=== PATIENT | male | born 1985 | race Caucasian/White ===

== ENCOUNTER 2018-07-10 05:32 | Day surgery (SDC) | payer BC ==
[2018-07-10] MEDS: BUPIVACAINE 0.25% (MPF) 30 ML INJ
[2018-07-10] MEDS ORDERED: FENTAnyl 50 MCG/ML VIAL (08:14)
[2018-07-10] MEDS ORDERED: MIDAZOLAM 1 MG/ML 2 ML INJ (08:14)
[2018-07-10] MEDS ORDERED: KETOROLAC 30 MG INJ (08:16)
[2018-07-10] MEDS ORDERED: CEFAZOLIN 1 GM INJ (08:16)
[2018-07-10] MEDS: LIDOCAINE 2% (MDV) 20 ML INJ (08:40)
[2018-07-10] MEDS: BUPIVACAINE 0.5% (SDV) 30 ML INJ (08:40)
[2018-07-10] MEDS ORDERED: HYDROCODONE/APAP (5/325) TAB PO (09:00)
== END 2018-07-15 09:43 | disposition home or self-care (01) ==
LOC: SDS 05:32
DX: D23.61 Other benign neoplasm of skin of right upper limb, including shoulder (principal)
CPT/HCPCS: 14020; 88307; 88341; 88342

== ENCOUNTER 2018-07-18 17:21 | Emergency (ER) | payer BC | END 2018-07-18 18:49 | disposition home or self-care (01) | LOC: FTE 17:21 | DX: Z48.01 Encounter for change or removal of surgical wound dressing (principal); F17.210 Nicotine dependence, cigarettes, uncomplicated | CPT/HCPCS: 99283 ==